=== PATIENT | male | born 1970 | race Caucasian/White ===

== ENCOUNTER 2017-03-30 14:06 | Inpatient (IN) ==
[2017-03-30] MEDS ORDERED: FUROSEMIDE 100 MG/10 ML VIAL IV STA (14:25)
[2017-03-30] MEDS ORDERED: ASPIRIN 325 MG TABLET PO STA (14:25)
[2017-03-30] MEDS ORDERED: ALBUTEROL/IPRATROPIUM 3 ML NEB RESP TX STA (14:25)
[2017-03-30] MEDS ORDERED: methylPREDNISolone SOD SUC 125 MG/2 ML VIAL IV STA (14:25)
[2017-03-30] MEDS ORDERED: cefTRIAXone 1,000 MG in SODIUM CHLORIDE 0.9% 100 ML IV STA (14:28)
[2017-03-30] MEDS ORDERED: methylPREDNISolone SOD SUC 125 MG/2 ML VIAL ONE (14:42)
[2017-03-30] MEDS ORDERED: FUROSEMIDE 20 MG/2 ML VIAL ONE (14:42)
[2017-03-30] MEDS ORDERED: ASPIRIN 325 MG TABLET ONE (14:42)
[2017-03-30 14:46] LABS: Basophils # 0.1 10*3/uL (0.0-0.2); Basophils % 0.8 % (0.0-0.8); Eosinophils # 0.1 10*3/uL (0.0-0.87); Eosinophils % 0.9 % (0.00-10.9); Hemoglobin 14.8 GM/DL (14.0-18.0); Immature Granulocytes % 0.4 %; Immature Granulocytes Absolute 0.03 #; Lymphocytes # 0.6 10*3/uL (1.4-4.0); Lymphocytes % 7.9 % (21.2-54.2); Mean Corpuscular HGB Conc 35.2 GM/DL (32-36); Mean Corpuscular Hemoglobin 30 PG (27-34); Mean Corpuscular Volume 85.4 FL (87-102); Mean Platelet Volume 9.6 FL (9.6-12.0); Monocytes # 0.4 10*3/uL (0.11-0.8); Monocytes % 4.9 % (1.7-12.7); Neutrophils # 6.7 10*3/uL (1.4-7.4); Neutrophils % 85.1 % (38.7-73.9); Platelet Count 225 T/CUMM (130-400); Red Blood Count 4.92 MC/CUMM (3.8-5.5); Red Cell Distribution Width 12.2 % (9.3-17.3); White Blood Count 7.8 T/CUMM (4-12)
[2017-03-30 14:58] LABS: INR 0.9
[2017-03-30] MEDS ORDERED: cefTRIAXone 1,000 MG VIAL ONE (15:12)
[2017-03-30 15:37] LABS: Lactic Acid 2.2 MMOL/L (0.4-2.0)
[2017-03-30 15:40] LABS: Alanine Aminotransferase 48 U/L (16-61); Albumin 3.7 G/DL (3.4-5.0); Alkaline Phosphatase 64 U/L (45-117); Aspartate Amino Transferase 25 U/L (0-37); Blood Urea Nitrogen 12 MG/DL (7-18); Calcium 8.4 MG/DL (8.5-10.1); Glucose 126 MG/DL (74-106); Magnesium 1.8 MG/DL (1.8-2.4); Osmolality,Calculated 278.5 MOS/KG (273-304); Potassium 3.9 MMOL/L (3.5-5.1); Sodium 139 MMOL/L (136-145); Total Protein 7.6 G/DL (6.4-8.3); Troponin I Only < 0.015 NG/ML (0.00-0.045)
[2017-03-30] MEDS ORDERED: SODIUM BICARBONATE 50 MEQ/50 ML VIAL IV STA (15:42)
[2017-03-30] MEDS ORDERED: SODIUM CHLORIDE 0.9% 500 ML IV STA (15:42)
[2017-03-30] MEDS ORDERED: SODIUM BICARBONATE 50 MEQ/50 ML SYRINGE IV ONE (15:46)
[2017-03-30] MEDS ORDERED: ENOXAPARIN 100 MG/ML SYRINGE SUBCUT STA (16:49)
[2017-03-30] MEDS ORDERED: ENOXAPARIN 120 MG/0.8 ML SYRINGE SUBCUT ONE (16:50)
[2017-03-30] MEDS ORDERED: PIPERACILLIN/TAZOBACTAM 3,375 MG VIAL IV ONE (16:55)
[2017-03-30] MEDS ORDERED: HYDROcod/ACETAMIN 7.5-325 MG/15 ML UDCUP PO STA (17:08)
[2017-03-30] MEDS ORDERED: HYDROcod/ACETAMIN 7.5-325 MG/15 ML UDCUP ONE (17:15)
[2017-03-30] MEDS: PIPERACILLIN/TAZOBACTAM 3,375 MG in SODIUM CHLORIDE 0.9% 100 ML IV SCH (17:19)
[2017-03-30 17:28] LABS: Apearance,Urine CLEAR (Clear); Bilirubin,Urine Negative (Negative); Blood, Urine Negative (Negative); Glucose,Urine (UA) Negative (Negative); Ketones,Urine Negative (Negative); Nitrite,Urine Negative (Negative); Protein,Urine Negative; Urine Color Straw (Yellow); Urine Urobilinogen < 2.0 EU/DL (0.2-1.0)
[2017-03-30] MEDS ORDERED: ALBUTEROL/IPRATROPIUM 3 ML NEB RESP TX PRN (18:42)
[2017-03-30] MEDS ORDERED: MORPHINE 2 MG/1 ML SYRINGE IV PRN (18:42)
[2017-03-30] MEDS ORDERED: ONDANSETRON 4 MG/2 ML VIAL IV PRN (18:42)
[2017-03-30] MEDS ORDERED: SODIUM CHLORIDE 0.9% 1,000 ML IV SCH (18:42)
[2017-03-30] MEDS ORDERED: ACETAMINOPHEN 325 MG TABLET PO PRN (18:42)
[2017-03-30] MEDS: NITROGLYCERIN 2% OINT 1 INCH/GM PACK TOP SCH (18:51)
[2017-03-30] MEDS: cefTRIAXone 1,000 MG in SYRINGE 1 EACH IV SCH (18:55)
[2017-03-30 19:29] LABS: PT Patient Result 10.6 SECS; Partial Thromboplastin Time 29.6 SECS (0-40)
[2017-03-30] MEDS: methylPREDNISolone SOD SUC 40 MG/1 ML VIAL IV SCH (19:31)
[2017-03-30 19:39] LABS: Lactic Acid 3.4 MMOL/L (0.4-2.0)
[2017-03-30] MEDS: DOCUSATE SODIUM 100 MG CAPSULE PO SCH (22:00)
[2017-03-30] MEDS: ENOXAPARIN 120 MG/0.8 ML SYRINGE SUBCUT SCH (22:00)
[2017-03-30] MEDS: PANTOPRAZOLE 40 MG VIAL IV SCH (22:01)
[2017-03-30] MEDS: HYDROcodone/CHLORPHENIRAMINE ER 5 ML UDCUP PO PRN (22:21)
[2017-03-31 00:26] LABS: Lactic Acid 4.8 MMOL/L (0.4-2.0)
[2017-03-31] MEDS: NITROGLYCERIN 2% OINT 1 INCH/GM PACK TOP SCH ×4 (02:13→18:30)
[2017-03-31] MEDS: PIPERACILLIN/TAZOBACTAM 3,375 MG in SODIUM CHLORIDE 0.9% 100 ML IV SCH ×4 (04:45→18:46)
[2017-03-31] MEDS: methylPREDNISolone SOD SUC 40 MG/1 ML VIAL IV SCH ×3 (04:45→18:30)
[2017-03-31 06:05] LABS: Basophils % 0.3 % (0.0-0.8); Hematocrit 40.4 VOL% (42.0-52.0); Hemoglobin 13.9 GM/DL (14.0-18.0); Immature Granulocytes % 0.6 %; Immature Granulocytes Absolute 0.05 #; Lymphocytes # 0.9 10*3/uL (1.4-4.0); Lymphocytes % 11.4 % (21.2-54.2); Mean Corpuscular HGB Conc 34.4 GM/DL (32-36); Mean Corpuscular Hemoglobin 30 PG (27-34); Mean Corpuscular Volume 86.1 FL (87-102); Mean Platelet Volume 10.1 FL (9.6-12.0); Monocytes # 0.4 10*3/uL (0.11-0.8); Monocytes % 4.9 % (1.7-12.7); Neutrophils # 6.6 10*3/uL (1.4-7.4); Neutrophils % 82.8 % (38.7-73.9); Platelet Count 238 T/CUMM (130-400); Red Blood Count 4.69 MC/CUMM (3.8-5.5); Red Cell Distribution Width 12.5 % (9.3-17.3)
[2017-03-31 06:34] LABS: Lactic Acid 3.5 MMOL/L (0.4-2.0)
[2017-03-31 06:51] LABS: Albumin 3.3 G/DL (3.4-5.0); Bilirubin,Total 0.4 MG/DL (0.2-1.0); Calcium 7.9 MG/DL (8.5-10.1); Osmolality,Calculated 284.4 MOS/KG (273-304); Total Protein 6.3 G/DL (6.4-8.3)
[2017-03-31] MEDS ORDERED: POTASSIUM CHLORIDE RIDER 10 MEQ in PREMIX 1 EACH IV PRN (07:11)
[2017-03-31] MEDS ORDERED: diphenhydrAMINE CAP 25 MG CAPSULE PO ONE (07:11)
[2017-03-31] MEDS ORDERED: MAGNESIUM SULF RIDER 2 GM in PREMIX 1 EACH IV PRN (07:11)
[2017-03-31] MEDS ORDERED: DIAZEPAM 5 MG TABLET PO ONE (07:11)
[2017-03-31] MEDS: ASPIRIN EC 325 MG TABLET PO SCH (08:04)
[2017-03-31] MEDS: ENOXAPARIN 120 MG/0.8 ML SYRINGE SUBCUT SCH (08:05)
[2017-03-31] MEDS ORDERED: LIDOCAINE 1% 20 ML VIAL ONE (08:18)
[2017-03-31] MEDS ORDERED: HEPARIN/NACL 0.9% 2 UNITS/ML 2,000 ML IV ONE (08:18)
[2017-03-31] MEDS ORDERED: VERAPAMIL 5 MG/2 ML VIAL ONE (08:19)
[2017-03-31] MEDS ORDERED: NITROGLYCERIN DRIP 50 MG/250 ML BOTTLE IV ONE (08:19)
[2017-03-31] MEDS ORDERED: PANTOPRAZOLE 40 MG VIAL IV SCH (09:00)
[2017-03-31] MEDS ORDERED: MIDAZOLAM 2 MG/2 ML VIAL ONE (09:02)
[2017-03-31] MEDS ORDERED: fentaNYL 100 MCG/2 ML VIAL ONE (09:02)
[2017-03-31] MEDS ORDERED: LIDOCAINE 2%/EPI 20 ML VIAL ONE (09:29)
[2017-03-31] MEDS: DOCUSATE SODIUM 100 MG CAPSULE PO SCH ×2 (10:15→22:19)
[2017-03-31 11:35] LABS: T4 (Thyroxine) 8.1 UG/DL (4.7-13.3); Thyroid Stimulating Hormone 0.186 uIU/ml (0.358-3.74)
[2017-03-31] MEDS: HYDROcodone/CHLORPHENIRAMINE ER 5 ML UDCUP PO PRN ×2 (13:15→22:19)
[2017-03-31] MEDS: cefTRIAXone 1,000 MG in SYRINGE 1 EACH IV SCH (18:37)
[2017-03-31] MEDS: PANTOPRAZOLE 40 MG VIAL IV SCH (22:19)
[2017-04-01] MEDS: NITROGLYCERIN 2% OINT 1 INCH/GM PACK TOP SCH ×2 (03:13→07:25)
[2017-04-01] MEDS: PIPERACILLIN/TAZOBACTAM 3,375 MG in SODIUM CHLORIDE 0.9% 100 ML IV SCH (03:31)
[2017-04-01] MEDS: methylPREDNISolone SOD SUC 40 MG/1 ML VIAL IV SCH (03:31)
[2017-04-01 07:27] VITALS: BP 138/83
[2017-04-01] MEDS: ASPIRIN EC 325 MG TABLET PO SCH (08:19)
[2017-04-01] MEDS: DOCUSATE SODIUM 100 MG CAPSULE PO SCH (08:19)
== END 2017-04-01 08:48 | disposition home or self-care (01) | DRG 287 ==
LOC: EDBD → EDUNIT# → N.ED 14:06 → N.EDINP 17:46 → N.TELES 18:27
PROVIDERS: ADMIT Family Medicine; ATTEND Family Medicine
PROC: CLCCHCL (ICD-10-PCS; 2017-03-31 09:45)

== ENCOUNTER 2017-05-01 05:45 | Inpatient (IN) ==
[2017-04-30 17:22] LABS: Basophils % 0.2 % (0.0-0.8); Eosinophils % 0.1 % (0.00-10.9); Hematocrit 43.2 VOL% (42.0-52.0); Hemoglobin 14.5 GM/DL (14.0-18.0); Immature Granulocytes % 0.7 %; Immature Granulocytes Absolute 0.06 #; Lymphocytes % 11.6 % (21.2-54.2); Mean Corpuscular HGB Conc 33.6 GM/DL (32-36); Mean Corpuscular Hemoglobin 29 PG (27-34); Mean Corpuscular Volume 87.3 FL (87-102); Mean Platelet Volume 9.7 FL (9.6-12.0); Monocytes # 0.4 10*3/uL (0.11-0.8); Monocytes % 4.6 % (1.7-12.7); Neutrophils # 7.1 10*3/uL (1.4-7.4); Neutrophils % 82.8 % (38.7-73.9); Platelet Count 272 T/CUMM (130-400); Red Blood Count 4.95 MC/CUMM (3.8-5.5); Red Cell Distribution Width 12.8 % (9.3-17.3); White Blood Count 8.6 T/CUMM (4-12)
[2017-04-30 17:35] LABS: Calcium 8.4 MG/DL (8.5-10.1); Osmolality,Calculated 281.5 MOS/KG (273-304); Potassium 4.4 MMOL/L (3.5-5.1)
[2017-04-30 17:38] LABS: INR 0.9; PT Patient Result 9.9 SECS; Partial Thromboplastin Time 27.7 SECS (0-40)
[~2017-05-01 05:45] MED LIST: DIAZEPAM 5 MG TABLET PO ONE; FAMOTIDINE 20 MG TABLET PO ONE
[2017-05-01] MEDS ORDERED: DIAZEPAM 5 MG TABLET ONE (06:04)
[2017-05-01] MEDS ORDERED: FAMOTIDINE 20 MG TABLET ONE (06:04)
[2017-05-01] MEDS: LACTATED RINGERS 1,000 ML IV SCH ×2 (06:34→14:05)
[2017-05-01] MEDS ORDERED: VANCOMYCIN 1,000 MG VIAL ONE (07:35)
[2017-05-01] MEDS ORDERED: BACITRACIN OINT 0.9 GM PACK TOP ONE (07:48)
[2017-05-01] MEDS ORDERED: MAGNESIUM HYDROXIDE SUSP 30 ML UDCUP PO PRN (08:59)
[2017-05-01] MEDS ORDERED: MORPHINE 2 MG/1 ML SYRINGE IV PRN ×2 (09:01)
[2017-05-01] MEDS ORDERED: ONDANSETRON 4 MG/2 ML VIAL IV PRN ×2 (09:01→09:15)
[2017-05-01] MEDS ORDERED: SEVOFLURANE 1 UNIT/15 MINUTE INH ONE (09:11)
[2017-05-01] MEDS ORDERED: PROPOFOL 200 MG/20 ML VIAL IV ONE (09:11)
[2017-05-01] MEDS ORDERED: MIDAZOLAM 2 MG/2 ML VIAL ONE (09:12)
[2017-05-01] MEDS ORDERED: fentaNYL 100 MCG/2 ML VIAL ONE (09:12)
[2017-05-01] MEDS ORDERED: SODIUM CHLORIDE 0.9% 500 ML IV ONE (09:12)
[2017-05-01] MEDS ORDERED: ACETAMINOPHEN 1,000 MG/100 ML VIAL IV ONE (09:12)
[2017-05-01] MEDS ORDERED: ONDANSETRON 4 MG/2 ML VIAL ONE (09:16)
[2017-05-01] MEDS ORDERED: HYDROmorphone 2 MG/1 ML VIAL ONE (09:16)
[2017-05-01] MEDS: HYDROmorphone 2 MG/1 ML VIAL IV PRN ×4 (09:20→09:35)
[2017-05-01] MEDS ORDERED: ROPIVACAINE 0.5% 30 ML VIAL ONE (09:28)
[2017-05-01] MEDS ORDERED: KETOROLAC 30 MG/1 ML VIAL ONE (09:43)
[2017-05-01] MEDS ORDERED: DEXAMETHASONE 4 MG/1 ML VIAL ONE (09:44)
[2017-05-01] MEDS ORDERED: KETOROLAC 30 MG/1 ML VIAL IV ONE (09:45)
[2017-05-01] MEDS ORDERED: DEXAMETHASONE 4 MG/1 ML VIAL IV ONE (09:46)
[2017-05-01] MEDS ORDERED: GABAPENTIN 400 MG CAPSULE ONE (10:18)
[2017-05-01] MEDS ORDERED: GABAPENTIN 400 MG CAPSULE PO STA (10:19)
[2017-05-01] MEDS ORDERED: GLUCAGON 1 MG VIAL IM PRN (11:14)
[2017-05-01] MEDS ORDERED: DEXTROSE 50% 25 GM/50 ML VIAL IV PRN (11:14)
[2017-05-01] MEDS: INSULIN LISPRO 100 UNIT/ML SUBCUT SCH ×3 (14:05→22:20)
[2017-05-01] MEDS: VANCOMYCIN INJ 1,500 MG in SODIUM CHLORIDE 0.9% 500 ML IV SCH (17:23)
[2017-05-01] MEDS ORDERED: VANCOMYCIN INJ 1,000 MG in SODIUM CHLORIDE 0.9% 250 ML IV SCH (19:30)
[2017-05-01] MEDS: PANTOPRAZOLE 40 MG TABLET PO SCH (22:19)
[2017-05-01] MEDS: COLCHICINE 0.6 MG TABLET PO SCH (22:19)
[2017-05-02] MEDS: LACTATED RINGERS 1,000 ML IV SCH ×3 (00:21→06:34)
[2017-05-02 03:38] LABS: Osmolality,Calculated 278.4 MOS/KG (273-304); Potassium 4.4 MMOL/L (3.5-5.1)
[2017-05-02] MEDS: VANCOMYCIN INJ 1,500 MG in SODIUM CHLORIDE 0.9% 500 ML IV SCH ×2 (05:54→17:53)
[2017-05-02] MEDS: FONDAPARINUX 2.5 MG/0.5 ML SYRINGE SUBCUT SCH (05:54)
[2017-05-02] MEDS: INSULIN LISPRO 100 UNIT/ML SUBCUT SCH ×4 (08:18→21:10)
[2017-05-02] MEDS: COLCHICINE 0.6 MG TABLET PO SCH ×2 (09:03→20:55)
[2017-05-02] MEDS: KETOROLAC 30 MG/1 ML VIAL IV PRN (09:09)
[2017-05-02] MEDS: PANTOPRAZOLE 40 MG TABLET PO SCH (20:56)
[2017-05-03 04:03] LABS: Calcium 7.3 MG/DL (8.5-10.1); Osmolality,Calculated 282.3 MOS/KG (273-304); Potassium 3.7 MMOL/L (3.5-5.1)
[2017-05-03] MEDS: FONDAPARINUX 2.5 MG/0.5 ML SYRINGE SUBCUT SCH (04:20)
[2017-05-03] MEDS: VANCOMYCIN INJ 1,500 MG in SODIUM CHLORIDE 0.9% 500 ML IV SCH ×2 (04:20→17:02)
[2017-05-03] MEDS: INSULIN LISPRO 100 UNIT/ML SUBCUT SCH ×4 (09:15→20:22)
[2017-05-03] MEDS: LACTATED RINGERS 1,000 ML IV SCH (09:16)
[2017-05-03] MEDS: COLCHICINE 0.6 MG TABLET PO SCH ×2 (09:34→20:42)
[2017-05-03] MEDS: KETOROLAC 30 MG/1 ML VIAL IV PRN (16:40)
[2017-05-03] MEDS: PANTOPRAZOLE 40 MG TABLET PO SCH (20:42)
[2017-05-04] MEDS: VANCOMYCIN INJ 1,500 MG in SODIUM CHLORIDE 0.9% 500 ML IV SCH (05:13)
[2017-05-04] MEDS: FONDAPARINUX 2.5 MG/0.5 ML SYRINGE SUBCUT SCH (05:14)
[2017-05-04] MEDS: LACTATED RINGERS 1,000 ML IV SCH (07:04)
[2017-05-04 08:05] VITALS: BP 148/89
[2017-05-04] MEDS: COLCHICINE 0.6 MG TABLET PO SCH (08:58)
[2017-05-04] MEDS ORDERED: FEBUXOSTAT 80 MG TABLET PO SCH (09:00)
[2017-05-04] MEDS ORDERED: BACITRACIN OINT 0.9 GM PACK TOP SCH (09:00)
== END 2017-05-04 10:35 | disposition home or self-care (01) | DRG 502 ==
LOC: N.OR 05:45 → N.SDSINP 05:47 → N.3E 12:24
PROVIDERS: ADMIT Orthopaedic Surgery; ATTEND Orthopaedic Surgery

== ENCOUNTER 2020-03-08 14:16 | Observation (INO) ==
[2020-03-08] MEDS ORDERED: HYDROmorphone 2 MG/1 ML VIAL ONE (14:37)
[2020-03-08] MEDS ORDERED: ONDANSETRON 4 MG/2 ML VIAL ONE ×2 (14:37→18:03)
[2020-03-08 14:51] LABS: Basophils # 0.1 10*3/uL (0.0-0.2); Basophils % 0.7 % (0.0-0.8); Eosinophils # 0.2 10*3/uL (0.0-0.87); Eosinophils % 1.7 % (0.00-10.9); Hematocrit 47.7 VOL% (42.0-52.0); Hemoglobin 15.9 GM/DL (14.0-18.0); Immature Granulocytes % 0.5 %; Immature Granulocytes Absolute 0.06 #; Lymphocytes % 15.2 % (21.2-54.2); Mean Corpuscular HGB Conc 33.3 GM/DL (32-36); Mean Corpuscular Volume 88.8 FL (87-102); Monocytes % 7.4 % (1.7-12.7); Neutrophils % 74.5 % (38.7-73.9); Platelet Count 258 T/CUMM (130-400); Red Blood Count 5.37 MC/CUMM (3.8-5.5); Red Cell Distribution Width 12.5 % (9.3-17.3); White Blood Count 13.2 T/CUMM (4-12)
[2020-03-08] MEDS ORDERED: AMPICILLIN/SULBACTAM 3,000 MG in SODIUM CHLORIDE 0.9% 100 ML IV STA (14:51)
[2020-03-08] MEDS ORDERED: ONDANSETRON 4 MG/2 ML VIAL IV STA (14:53)
[2020-03-08] MEDS ORDERED: HYDROmorphone 2 MG/1 ML VIAL IV STA (14:53)
[2020-03-08] MEDS: SODIUM CHLORIDE 0.9% 1,000 ML IV SCH (15:00)
[2020-03-08] MEDS ORDERED: ACETAMINOPHEN 325 MG TABLET PO PRN (15:03)
[2020-03-08] MEDS ORDERED: ALBUTEROL/IPRATROPIUM 3 ML NEB RESP TX PRN (15:03)
[2020-03-08] MEDS ORDERED: HYDROmorphone 2 MG/1 ML VIAL IV PRN (15:03)
[2020-03-08] MEDS ORDERED: KETOROLAC 15 MG/1 ML VIAL IV PRN (15:03)
[2020-03-08] MEDS ORDERED: ONDANSETRON 4 MG/2 ML VIAL IV PRN (15:03)
[2020-03-08 15:06] LABS: Bilirubin,Total 0.5 MG/DL (0.2-1.0); Calcium 8.7 MG/DL (8.5-10.1); Osmolality,Calculated 275.7 MOS/KG (273-304)
[2020-03-08] MEDS: HYDROmorphone 2 MG/1 ML VIAL IV PRN ×5 (16:10→18:55)
[2020-03-08 16:20] LABS: Bilirubin,Urine Negative (Negative); Blood, Urine Negative (Negative); Glucose,Urine (UA) >=500 mg/dL (Negative); Ketones,Urine Negative (Negative); Nitrite,Urine Negative (Negative); Protein,Urine Negative; RBC,Urine <1 /HPF (0-4); Urine Appearance CLEAR (Clear); Urine Color Yellow (Yellow); Urine Specific Gravity 1.021 (1.001-1.035); Urine Urobilinogen < 2.0 EU/DL (0.2-1.0); WBC,Urine 1 /HPF (0-6)
[2020-03-08] MEDS ORDERED: fentaNYL 100 MCG/2 ML VIAL ONE (17:22)
[2020-03-08] MEDS ORDERED: MIDAZOLAM 2 MG/2 ML VIAL ONE (17:23)
[2020-03-08] MEDS ORDERED: propofoL 200 MG/20 ML VIAL IV ONE (18:03)
[2020-03-08] MEDS ORDERED: SODIUM CHLORIDE 0.9% 1,000 ML IV ONE (18:03)
[2020-03-08] MEDS ORDERED: ROCURONIUM 50 MG/5 ML VIAL IV ONE (18:03)
[2020-03-08] MEDS ORDERED: LIDOCAINE 2% 5 ML VIAL ONE (18:03)
[2020-03-08] MEDS ORDERED: SUCCINYLCHOLINE 200 MG/10 ML VIAL ONE (18:03)
[2020-03-08] MEDS ORDERED: SUGAMMADEX 200 MG/2 ML VIAL IV ONE (18:05)
[2020-03-08] MEDS ORDERED: PANTOPRAZOLE 40 MG TABLET PO SCH (21:00)
[2020-03-09] MEDS: LACTATED RINGERS 1,000 ML IV SCH (02:32)
[2020-03-09] MEDS: SODIUM CHLORIDE 0.9% 1,000 ML IV SCH (03:03)
[2020-03-09] MEDS: HYDROmorphone 2 MG/1 ML VIAL IV PRN (03:16)
[2020-03-09 06:13] LABS: Basophils # 0.1 10*3/uL (0.0-0.2); Basophils % 0.6 % (0.0-0.8); Eosinophils # 0.1 10*3/uL (0.0-0.87); Hematocrit 41.4 VOL% (42.0-52.0); Hemoglobin 13.6 GM/DL (14.0-18.0); Immature Granulocytes % 0.3 %; Immature Granulocytes Absolute 0.02 #; Lymphocytes # 2.5 10*3/uL (1.4-4.0); Lymphocytes % 32.3 % (21.2-54.2); Mean Corpuscular HGB Conc 32.9 GM/DL (32-36); Mean Corpuscular Volume 90.4 FL (87-102); Mean Platelet Volume 9.5 FL (9.6-12.0); Monocytes % 10.5 % (1.7-12.7); Neutrophils % 55.3 % (38.7-73.9); Platelet Count 212 T/CUMM (130-400); Red Blood Count 4.58 MC/CUMM (3.8-5.5); Red Cell Distribution Width 12.5 % (9.3-17.3); White Blood Count 7.8 T/CUMM (4-12)
[2020-03-09 06:33] LABS: Albumin 3.1 G/DL (3.4-5.0); Bilirubin,Total 0.9 MG/DL (0.2-1.0); Calcium 7.7 MG/DL (8.5-10.1); Osmolality,Calculated 277.5 MOS/KG (273-304); Total Protein 6.4 G/DL (6.4-8.3)
[2020-03-09 07:38] VITALS: BP 117/66
[2020-03-09] MEDS ORDERED: FEBUXOSTAT 80 MG TABLET PO SCH (09:00)
[2020-03-09] MEDS ORDERED: PANTOPRAZOLE 40 MG TABLET PO SCH (09:00)
[2020-03-09] MEDS ORDERED: NEBIVOLOL 10 MG TABLET PO SCH (09:00)
[2020-03-09] MEDS ORDERED: MONTELUKAST 10 MG TABLET PO SCH (09:00)
== END 2020-03-09 11:09 | disposition home or self-care (01) ==
LOC: N.ED 14:16 → N.EDINP 14:16 → N.3E 15:47
PROVIDERS: ADMIT Surgery; ATTEND Surgery